=== PATIENT | female | born 1995 | race Caucasian/White ===

== ENCOUNTER 2017-01-20 18:17 | Emergency (ER) | payer OTHER ==
[~2017-01-20] VITALS: Ht 160 cm; Wt 59.9 kg
[2017-01-20 18:50] LABS: ABSOLUTE NEUTROPHILS 6.4 thou/uL (1.4-8.2); BASOPHILS 0.8 % (0.0-2.0); EOSINOPHILS 0.6 % (0.0-3.0); HEMATOCRIT 38.4 % (37.0-47.0); LYMPHOCYTES 24.8 % (24.0-44.0); MCH 28.8 pg (26.0-34.0); MCHC 33.8 g/dL (28.0-37.0); MONOCYTES 5.3 % (1.0-8.0); PLATELET COUNT 287 thou/uL (150-400); POLYS 68.5 % (36.0-66.0); RBC 4.52 mil/uL (4.20-5.00); RDW 14.2 % (10.5-14.5); WBC 9.4 thou/uL (4.0-11.0)
[2017-01-20 18:54] LABS: CALCIUM 9.5 mg/dL (8.5-10.1); CREATININE 0.8 mg/dL (0.6-1.0); MANUAL DIFF NO; POTASSIUM 3.8 mmol/L (3.5-5.1)
[2017-01-20] MEDS ORDERED: BENZTROPINE MES1 MG PO (19:56)
[2017-01-20 20:10] VITALS: BP 113/75
== END 2017-01-20 20:11 | disposition home or self-care (01) ==
LOC: ER 18:17
PROVIDERS: Physician Assistant
DX: G24.09 Other drug induced dystonia (principal); F32.9 Major depressive disorder, single episode, unspecified; F41.9 Anxiety disorder, unspecified; F17.210 Nicotine dependence, cigarettes, uncomplicated; F10.99 Alcohol use, unspecified with unspecified alcohol-induced disorder; Z88.8 Allergy status to other drugs, medicaments and biological substances; Z98.890 Other specified postprocedural states